=== PATIENT | female | born 1975 | race Caucasian/White ===

== ENCOUNTER 2024-11-17 12:57 | Emergency (ER) | payer MEDICAID, SELFPAY ==
[2024-11-17 12:59] VITALS: BMI 25.8
[2024-11-17 13:06] VITALS: BP 134/90; PULSE 110; RESP 18; TEMP 36.4; O2SAT 100
--- NOTE | 2024-11-17 13:15 | EKG_ITS ---
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
--- NOTE | 2024-11-17 13:15 | XR_ITS ---
Examination: AP lateral chest 2 views TECHNIQUE: Sitting AP lateral chest 2 views Date and time: November 17, 2024 1330 hours INDICATIONS: Loss of consciousness episode today. FINDINGS: Normal heart size No aspiration pneumonia. Moderate osteopenia IMPRESSION: No aspiration pneumonia
--- NOTE | 2024-11-17 13:15 | PD.EDRME ---
Rapid Medical Screening Exam E Arrival date/time: 11/17/24 12:57 49-year-old female with no known medical history presents to the emergency room with a chief complaint of dizziness, lightheadedness, abdominal pain, nausea vomiting x 1 day. Patient states she is on Ozempic and was drinking heavily yesterday afternoon. I have greeted and performed a focused initial assessment of this patient. A comprehensive ED assessment and evaluation of the patient, analysis of all test results, and completion of the medical decision making process will be conducted by additional ED providers. Chief Complaint: Anxiety Time Seen by Provider: 11/17/24 13:09 Vital signs: Vital Signs Temperature 97.5 F 11/17/24 13:06 Pulse Rate 110 H 11/17/24 13:06 Respiratory Rate 18 11/17/24 13:06 Blood Pressure 134/90 H 11/17/24 13:06 Pulse Oximetry (%) 100 11/17/24 13:06 Oxygen Delivery Method Room Air 11/17/24 13:06 Vital signs reviewed by provider: Yes
[2024-11-17 13:52] LABS: Basophils % (Auto) 0 % (0-2.5); Eosinophils # (Auto) 0.3 Thou/mm3 (0.0-0.5); Eosinophils % (Auto) 3 % (0-10); Hematocrit 41.6 % (36.0-46.0); Hemoglobin 14.7 g/dL (12.0-16.0); Immature Granulocytes % (Auto) 0 % (0-0); Immature Granulocytes Auto 0.04 Thou/mm3 (0.00-0.00); Lymphocytes # (Auto) 2.4 Thou/mm3 (1.0-4.8); Lymphocytes % (Auto) 24 % (10-50); Mean Corpuscular HGB Conc 35.3 g/dl (31.0-37.0); Mean Corpuscular Hemoglobin 30.3 pg (25.0-35.0); Mean Corpuscular Volume 86 fL (80-100); Monocytes # (Auto) 0.9 Thou/mm3 (0.0-0.8); Monocytes % (Auto) 8 % (0-12); Neutrophils # (Auto) 6.5 Thou/mm3 (1.8-7.7); Neutrophils % (Auto) 64 % (37-80); Nucleated Red Blood Cell % 0 /100 WBC (0); Platelet Count 288 Thou/mm3 (140-440); RDW Standard Deviation 41.4 fL (36.4-46.3); Red Blood Count 4.85 Miln/mm3 (4.00-5.20); White Blood Count 10.1 Thou/mm3 (3.6-11.0)
[2024-11-17 14:04] LABS: Collection Type, Urine Clean Catch
[2024-11-17 14:11] LABS: B-Type Natriuretic Peptide < 20 pg/mL (0-100)
[2024-11-17 14:32] LABS: Alanine Aminotransferase 45 U/L (10-49); Albumin, Serum 4.6 gm/dL (3.5-5.0); Albumin/Globulin Ratio 1.6 (1.2-2.2); Alkaline Phosphatase 137 U/L (46-116); Anion Gap 13 (7-16); BUN/Creatinine Ratio 14 Ratio (12-20); Bilirubin,Total 0.6 mg/dL (0.3-1.2); Blood Urea Nitrogen 13 mg/dL (9-23); Carbon Dioxide 25.2 mMol/L (20.0-31.0); Chloride 95 mMol/L (98-107); Creatinine (Component) 0.9 mg/dL (0.6-1.3); Estimated Creatinine Clearance 77.1 mL/min (>60); Globulin 2.8 gm/dL (2.3-3.5); Glucose 143 mg/dL (74-106); Magnesium 1.4 mg/dL (1.6-2.6); Osmolality,Calculated 268 (275-295); Sodium 133 mMol/L (136-145); Total Protein 7.4 gm/dL (5.7-8.2); Troponin I < 0.002 ng/mL (0.0-0.045); eGFR > 60 See Note
[2024-11-17 14:34] LABS: Potassium 2.6 mMol/L (3.4-5.1)
[2024-11-17 14:45] LABS: Amphetamine/Methamp Scrn,U Negative (Negative); Barbiturate Screen,Urine Negative (Negative); Benzodiazepines Screen,Urine Negative (Negative); Benzoylecgonine Screen, Ur Negative (Negative); Fentanyl Screen,Urine Negative (Negative); Opiate Screen,Urine Negative (Negative); THC Screen,Urine Negative (Negative)
[2024-11-17 14:47] LABS: Bilirubin,Urine Negative (Negative); Blood,Urine Negative (Negative); Clarity,Urine Clear (Clear/Hazy); Color,Urine Lt-Yellow (Lt Yel-Yel); Glucose, Urine Negative (Negative); Ketones,Urine Negative (Negative); Leukocyte Esterase,Urine Negative (Negative); Nitrite,Urine Negative (Negative); Protein,Urine Negative (Neg - Trace); RBC,Urine 5 /hpf (0-3); Specific Gravity,Urine 1.017 (1.001-1.035); Squamous Epithelial Cell,Urine 4 /hpf (0-5); Urobilinogen,Urine Negative mg/dL (0.0-1.0); WBC,Urine 4 /hpf (0-5)
[2024-11-17 15:51] VITALS: BP 175/101; PULSE 97; RESP 15; TEMP 36.3; O2SAT 100
--- NOTE | 2024-11-17 18:03 | PD.EDADULT ---
ED General RME/HPI General Chief complaint: Anxiety Stated complaint: ANXIOUS/BODY TINGLING AFTER DRINKING ETOH YEST Time Seen by Provider: 11/17/24 13:09 Arrival date/time: 11/17/24 12:57 Limitations: no limitations RME / HPI RME / HPI narrative: 11/17/24 12:57 49-year-old female with no known medical history presents to the emergency room with a chief complaint of dizziness, lightheadedness, abdominal pain, nausea vomiting x 1 day. Patient states she is on Ozempic and was drinking heavily yesterday afternoon. I have greeted and performed a focused initial assessment of this patient. A comprehensive ED assessment and evaluation of the patient, analysis of all test results, and completion of the medical decision making process will be conducted by additional ED providers. DR. ARBOLEDA MAIN ED EVALUATION: 49 year old female with history of hypertension and hyperlipidemia presents to the ED for evaluation of new-onset tingling, paresthesia in the arms and face, and associated weakness that began today. She reports a recent visit with her PCP, during which Losartan and potassium were discontinued. Currently still on hydrochlorothiazide. Additionally, she was started on weight loss medications prescribed by her PCP. The patient expresses concern that her symptoms may be related to the newly started weight loss medication. Related Data Allergies Allergy/AdvReac Type Severity Reaction Status Date / Time No Known Allergies Allergy Verified 11/18/24 17:38 Review of Systems Review of Systems Systems Reviewed: All systems reviewed, normal except as documented Past Medical History Past Medical History CARDIAC: Positive Hypercholesterolemia and Hypertension; Negative Congestive Heart Failure RESPIRATORY: Negative Chronic Obstructive Pulmonary Disease (COPD) GENITOURINARY: Negative Renal Disease ENDOCRINE: Negative Diabetes Mellitus Type 1 or Diabetes Mellitus Type 2 Social History SMOKING STATUS: Former smoker ED Exam General Limitations: Present no limitations General appearance: Present alert and in no apparent distress Head Head exam: Present atraumatic, normocephalic and normal inspection Eye Eye exam: Present normal appearance, PERRL and EOMI ENT ENT exam: Present normal exam, normal oropharynx and mucous membranes moist Neck Neck exam: Present normal inspection, full ROM and trachea midline Chest Chest inspection: Present normal inspection and symmetric chest wall rise Respiratory Respiratory exam: Present normal lung sounds bilaterally Cardiovascular Cardiovascular exam: Present regular rate, normal rhythm and normal heart sounds Abdominal Exam Abdominal exam: Present soft and normal bowel sounds Extremities Exam Extremities exam: Present normal inspection and full ROM Back Exam Back exam: Present normal inspection and full ROM Neurological Exam Neurological exam: Present alert, oriented X3 and CN II-XII intact Psychiatric Psychiatric exam: Present normal affect and normal mood Skin Skin exam: Present warm, dry, intact and normal color Course Quality Measures none Orders Category Date Time Status EKG (ED ONLY) *Do not use* NOW Care 11/17/24 13:15 Completed Insert IV NOW Care 11/17/24 15:52 Completed Diet Regular Diet 11/17/24 Dinner Active EKG (ED Only) Stat Exams 11/17/24 13:15 Draft XR chest 2V Stat Exams 11/17/24 13:15 Completed Alcohol, Blood Medical Stat Lab 11/17/24 13:40 Completed B-Type Natriuretic Peptide Stat Lab 11/17/24 13:40 Completed CBC Stat Lab 11/17/24 13:40 Completed Comprehensive Metabolic Panel Stat Lab 11/17/24 13:40 Completed Drug Screen,Urine Stat Lab 11/17/24 13:56 Completed Magnesium Stat Lab 11/17/24 13:40 Completed Troponin I Stat Lab 11/17/24 13:40 Completed Urinalysis Stat Lab 11/17/24 13:56 Completed LORazepam [Ativan Inj] Med 11/17/24 17:46 Discontinued 1 mg IVP X1 ONE Magnesium Sulfate 2 GM Ivpb [Magnesium Sulfate Ivpb] Med 11/17/24 18:28 Discontinued 2 gm in 50 ml IV X1 Ondansetron Odt [Zofran Odt] Med 11/17/24 13:15 Discontinued 4 mg PO X1 ONE POTASSIUM CHL 10 mEq IVPB [Kcl Ivpb] Med 11/17/24 17:45 Discontinued 10 meq in 100 ml IV Q1H Potassium Chloride [K-Dur] Med 11/17/24 17:43 Discontinued 40 meq PO X1 ONE Potassium Chloride [K-Dur] Med 11/17/24 19:00 Discontinued 40 meq PO X1 ONE Sodium Chloride 0.9% 1000 ml [Ns] 1,000 ml Med 11/17/24 18:02 Discontinued IV 100 mls/hr Vital Signs Vital signs: Vital Signs Temperature 97.5 F 11/17/24 13:06 Pulse Rate 110 H 11/17/24 13:06 Respiratory Rate 18 11/17/24 13:06 Blood Pressure 134/90 H 11/17/24 13:06 Pulse Oximetry (%) 100 11/17/24 13:06 Oxygen Delivery Method Room Air 11/17/24 13:06 Pulse ox is 100% on room air which is adequate. Discharge Plan Plan Patient Disposition: HOME (Self Care) Prescriptions/Referrals Referrals: Madi Garcia MD [Primary Care Provider] - In 1 week Problem List Clinical Impression: Hypokalemia, Hypomagnesemia, Paresthesias Patient/Caregiver Discharge Instructions Education Materials: Discharge Instructions for ..., ED Hypokalemia, ED Paraesthesias Additional Instructions: Hold hydrochlorothiazide tomorrow. Follow up with your doctor for further recommendations. Print Language: Occitan Stand Alone Forms: Jennifer Award Info., Patient Portal Info Letter [facility] Narrative Sign out note: 1800: Patient signed out to Dr. De La Torre pending final disposition. [facility] hospital course: IVickie, tigre scribing for and in the presence of Dr. Arboleda. Labs show patient has hypokalemia and ordered two doses of PO potassium and IV Potassium. Clinical Information Provided by patient Medical Records Reviewed [facility] Meds/Rx Considered, not Ordered None Labs/Rad/Tests considered, not Ordered None Chronic Illness/Social Conditions which may negatively complicate care or outcome(s)-explain: None or not applicable EKG Interpretation EKG #1: Date/time of EK11/17/24 13:17 EKG interpretation: Sinus tachycardia, rate 126, incomplete right bundle branch block, no STEMI. Lab Interpretation Labs: interpreted by me and see narrative above Lab(s) interpretation(s): Hypokalemia Imaging Radiology reports / interpretation(s): Ordering Physician: Xander San Date of Service: 11/17/24 Procedure(s): XR chest 2V Accession Number(s): [id number] cc: Xander San; Magdy Ceja MD~ Examination: AP lateral chest 2 views TECHNIQUE: Sitting AP lateral chest 2 views Date and time: November 17, 2024 1330 hours INDICATIONS: Loss of consciousness episode today. FINDINGS: Normal heart size No aspiration pneumonia. Moderate osteopenia IMPRESSION: No aspiration pneumonia Dictated By: Magdy Ceja MD Signed By: <Electronically signed by Magdy Ceja MD in OV> 11/17/24 1337 Medication Administration(s) Medication Administration History Discontinued Medications Potassium Chloride (Kcl Ivpb) 10 meq in 100 mls @ 100 mls/hr IV Q1H DHARA Stop: 11/17/24 21:44 Last Admin: 11/17/24 22:41 Dose: Not Given Documented By: CELE Non-Admin Reason: Cancelled by Provider Infusion: 11/17/24 22:20 Dose: Infused Documented By: Admin: 11/17/24 21:00 Dose: 75 mls/hr Documented By: Infusion: 11/17/24 20:53 Dose: Infused Documented By: Admin: 11/17/24 19:33 Dose: 75 mls/hr Documented By: Infusion: 11/17/24 19:31 Dose: Infused Documented By: Infusion: 11/17/24 18:33 Dose: 75 mls/hr Documented By: Admin: 11/17/24 18:16 Dose: 100 mls/hr Documented By: OSIEL Sodium Chloride (Ns) 1,000 mls @ 100 mls/hr IV .Q10H ONE Stop: 11/18/24 04:01 Last Admin: 11/17/24 18:17 Dose: 100 mls/hr Documented By: OSIEL Magnesium Sulfate (Magnesium Sulfate Ivpb) 2 gm in 50 mls @ 25 mls/hr IV X1 ONE Stop: 11/17/24 20:27 Last Infusion: 11/17/24 21:17 Dose: Infused Documented By: Admin: 11/17/24 19:00 Dose: 25 mls/hr Documented By: OSIEL Lorazepam (Lorazepam 2 Mg/Ml Vial) 1 mg IVP X1 ONE Stop: 11/17/24 17:47 Last Admin: 11/17/24 18:08 Dose: 1 mg Documented By: OSIEL Ondansetron HCl (Ondansetron Odt 4 Mg Tabrap) 4 mg PO X1 ONE; Protocol Stop: 11/17/24 13:16 Last Admin: 11/17/24 13:26 Dose: Not Given Documented By: YUSRA Non-Admin Reason: Patient Refused Potassium Chloride (Potassium Chloride 20 Meq Tabcr) 40 meq PO X1 ONE Stop: 11/17/24 19:01 Last Admin: 11/17/24 18:08 Dose: 40 meq Documented By: OSIEL Potassium Chloride (Potassium Chloride 20 Meq Tabcr) 40 meq PO X1 ONE Stop: 11/17/24 17:44 Last Admin: 11/17/24 19:34 Dose: 40 meq Documented By: CELE See above
[2024-11-17] MEDS: POTASSIUM CHLORIDE 20 mEq TABCR 40 MEQ PO ×2 (18:08→19:34)
[2024-11-17] MEDS: LORazepam 2 MG/ML VIAL 1 MG IVP (18:08)
[2024-11-17 18:13] VITALS: BP 128/87; PULSE 93; RESP 16; TEMP 36.2; O2SAT 100
[2024-11-17] MEDS: POTASSIUM CHL 10 mEq IVPB 10 MEQ/100 ML BAG 100 MEQ IV (18:16)
[2024-11-17] MEDS: SODIUM CHLORIDE 0.9% 1000 ML 1,000 ML 100 ML IV (18:17)
--- NOTE | 2024-11-17 18:27 | EDNOTE_ITS ---
Emergency Room Addendum Addendum Narrative: 1800: Care assumed from Dr. Shah the previous shift emergency physician. Past medical, surgical, social and family history reviewed. Vitals and home medications reviewed. Results and treatment plan discussed. I will assume the care of the patient at this time and will follow the patient, pending re- evaluation. Please refer to the emergency department record for history and examination from initial visit. Magnesium level is 1.4. I ordered Magnesium 2g IV. 2235: Patient states she feels significantly better and is now asymptomatic. Patient is stable to be discharged home.
[2024-11-17] MEDS: Magnesium Sulfate 2 GM Ivpb 2 GM/50 ML BAG IV (19:00)
[2024-11-17 19:19] VITALS: BP 126/96; PULSE 89; RESP 16; TEMP 36.8; O2SAT 99
[2024-11-17 19:32] LABS: Alcohol, Blood Medical < 3.0 mg/dL (0-10.0)
[2024-11-17] MEDS: POTASSIUM CHL 10 mEq IVPB 10 MEQ/100 ML BAG 75 MEQ IV ×2 (19:33→21:00)
[2024-11-17 22:07] VITALS: BP 111/77; PULSE 91; RESP 16; TEMP 36.7; O2SAT 99
== END 2024-11-17 23:04 | disposition home or self-care (01) ==
PROVIDERS: Nurse Practitioner Family; Emergency Provider Emergency Medicine; PCP Internal Medicine
DX: E83.42 Hypomagnesemia (principal); E87.6 Hypokalemia; R20.2 Paresthesia of skin; R11.2 Nausea with vomiting, unspecified; I45.10 Unspecified right bundle-branch block; R55 Syncope and collapse; I10 Essential (primary) hypertension; E78.00 Pure hypercholesterolemia, unspecified; Z87.891 Personal history of nicotine dependence
CPT/HCPCS: 36415; 71046; 80053; 80307; 80320; 81001; 83735; 83880; 84484; 85025; 93005; 96365; 96366; 96367; 96375; 99284; J2060; J3475; J3480; J7030; A9270; G0480

== ENCOUNTER 2024-11-18 17:35 | Emergency (ER) | payer MEDICAID, SELFPAY ==
[2024-11-18 17:36] VITALS: BMI 25.8
[2024-11-18 18:04] VITALS: BP 141/99; PULSE 93; RESP 18; TEMP 36.5; O2SAT 98
--- NOTE | 2024-11-18 18:41 | EDNOTE_ITS ---
<Statement entered by Niurka De La Torre MD - 11/19/24 18:36> As co-signing physician, I was present and available for consult prn. I concur with the plan and care as documented by the midlevel provider. Nausea/Vomit./Diarrhea-RME/HPI General Chief complaint: Nausea/Vomiting/Diarrhea Stated complaint: DIARRHEA/FELLING FUNNY, SEEN YESTERDAY LOW K+ Time Seen by Provider: 11/18/24 18:29 Arrival date/time: 11/18/24 17:35 49F with history of HTN and anxiety presents to ED with continued non-bloody diarrhea. Patient was here yesterday where potassium and magnesium were low. Patient felt better after she left ED. Symptoms returned about 2 hours ago and patient wants to get ahead of it before it gets as bad as yesterday. Limitations: no limitations Related Data Allergies Allergy/AdvReac Type Severity Reaction Status Date / Time No Known Allergies Allergy Verified 11/18/24 17:38 Review of Systems Review of Systems Systems Reviewed: All systems reviewed, normal except as documented Constitutional Constitutional: Reports system reviewed and no additional complaints, except as documented, Denies fever(s) and Denies headache(s) ENT Ears, Nose, Mouth, and Throat: Denies disequilibrium and Denies headache(s) Cardiovascular Cardiovascular: Reports system reviewed and no additional complaints, except as documented, Denies chest pain and Denies dyspnea Respiratory Respiratory: Reports system reviewed and no additional complaints, except as documented, Denies cough and Denies dyspnea Gastrointestinal Gastrointestinal: Reports system reviewed and no additional complaints, except as documented, Reports as per HPI, Denies abdominal pain, Reports diarrhea, Denies nausea and Denies vomiting Neurologic Neurologic: Reports system reviewed and no additional complaints, except as documented, Denies confusion, Denies disequilibrium and Denies headache(s) Psychiatric Psychiatric: Denies confusion Past Medical History Past Medical History CARDIAC: Positive Hypercholesterolemia and Hypertension; Negative Congestive Heart Failure RESPIRATORY: Negative Chronic Obstructive Pulmonary Disease (COPD) GENITOURINARY: Negative Renal Disease ENDOCRINE: Negative Diabetes Mellitus Type 1 or Diabetes Mellitus Type 2 Social History SMOKING STATUS: Never smoker ED Exam General Limitations: Present no limitations General appearance: Present alert and in no apparent distress Head Head exam: Present atraumatic Eye Eye exam: Present normal appearance, PERRL and EOMI ENT ENT exam: Present normal exam, normal oropharynx and mucous membranes moist Neck Neck exam: Present normal inspection, full ROM and trachea midline Chest Chest inspection: Present normal inspection and symmetric chest wall rise Respiratory Respiratory exam: Present normal lung sounds bilaterally Cardiovascular Cardiovascular exam: Present regular rate, normal rhythm and normal heart sounds Abdominal Exam Abdominal exam: Present soft and normal bowel sounds Extremities Exam Extremities exam: Present normal inspection and full ROM Back Exam Back exam: Present normal inspection and full ROM Neurological Exam Neurological exam: Present alert, oriented X3 and CN II-XII intact Psychiatric Psychiatric exam: Present normal affect and normal mood Skin Skin exam: Present warm, dry, intact and normal color Course Quality Measures none Orders Category Date Time Status CBC Stat Lab 11/18/24 18:45 Completed CMP [Comprehensive Metabolic Panel] Stat Lab 11/18/24 18:45 Completed Lipase Stat Lab 11/18/24 18:45 Completed Mag [Magnesium] Stat Lab 11/18/24 18:45 Completed Vital Signs Vital signs: Vital Signs Temperature 97.7 F 11/18/24 18:04 Pulse Rate 93 11/18/24 18:04 Respiratory Rate 18 11/18/24 18:04 Blood Pressure 141/99 H 11/18/24 18:04 Pulse Oximetry (%) 98 11/18/24 18:04 Oxygen Delivery Method Room Air 11/18/24 18:04 O2 at 98% on RA and WNLs Nausea/Vomiting/Diarrhea MDM Narrative MDM Narrative:: 49F with history of HTN and anxiety presents to ED with continued non-bloody diarrhea. Patient was here yesterday where potassium and magnesium were low. Patient felt better after she left ED. Symptoms returned about 2 hours ago and patient wants to get ahead of it before it gets as bad as yesterday. Physical exam reveals well-appearing female. Patient is afebrile, alert, but anxious. Normal WOB. Normal speech. Normal gait. CBC unremarkable. CMP normal. Magnesium and lipase also normal. Operations And Intelligence Assistant given. Patient data External records reviewed:: [facility] previous records Clinical information provided by:: patient Social determinants that could affect healthcare access:: mental health Patient has the following chronic illnesses:: anxiety and HTN How is presenting disease/condition affected by chronic disease/condition?: exacerbated by Evaluation data The following diagnostics were reviewed and interpreted by me:: lab results Lab and/or radiology exams considered but not ordered:: ordered Interpretation Summary: above Medications / Prescriptions Medications / Prescriptions considered but not ordered:: not ordered Medication administrations:: n/a Consultations Consultation(s) initiated? (list below): No Diagnosis Nausea Differential Diagnosis: traveler's diarrhea, food poisoning, gastroenteritis, clostridium difficile infection, drug-induced nausea and vomit ing and dehydration Most likely diagnosis given after review of the tests above:: gastroenteritis Admission Indicated Admission indicated?: not indicated Admission Request Was there a request for admission?: No Disposition Plan Disposition Plan: Discharge Discharge Attestation Discharge Attestation: The patient and all family members were given an opportunity to ask questions and understood the discharge instructions. Discharge instructions specifically effects, indications for sooner follow up or return to the emergency department, and the expected course of current diagnosis. Patient condition: Stable Discharge Plan Plan Patient Disposition: HOME (Self Care) Discharge Disposition comment: Stable Prescriptions/Referrals Referrals: Aquilino Car MD [Primary Care Provider] - In 1 week Problem List Clinical Impression: Gastroenteritis Patient/Caregiver Discharge Instructions Education Materials: ED Diarrhea, Viral (Adult) Additional Instructions: Please follow-up with PCP within 24-48 hours and return immediately if symptoms worsen. Can follow-up with PCP for stool testing. Print Language: Tristanian Stand Alone Forms: Patient Portal Info Letter GONZALEZ/SHERRIE Supervising Physician LOREZNO Supervising Physician: Dr. De La Torre
[2024-11-18 18:56] LABS: Basophils # (Auto) 0.1 Thou/mm3 (0.0-0.2); Basophils % (Auto) 1 % (0-2.5); Eosinophils # (Auto) 0.5 Thou/mm3 (0.0-0.5); Eosinophils % (Auto) 5 % (0-10); Hematocrit 41.5 % (36.0-46.0); Hemoglobin 14.2 g/dL (12.0-16.0); Immature Granulocytes % (Auto) 0 % (0-0); Immature Granulocytes Auto 0.03 Thou/mm3 (0.00-0.00); Lymphocytes % (Auto) 29 % (10-50); Mean Corpuscular HGB Conc 34.2 g/dl (31.0-37.0); Mean Corpuscular Hemoglobin 30.1 pg (25.0-35.0); Mean Corpuscular Volume 88 fL (80-100); Monocytes # (Auto) 0.9 Thou/mm3 (0.0-0.8); Monocytes % (Auto) 8 % (0-12); Neutrophils # (Auto) 6.1 Thou/mm3 (1.8-7.7); Neutrophils % (Auto) 58 % (37-80); Nucleated Red Blood Cell % 0 /100 WBC (0); Platelet Count 283 Thou/mm3 (140-440); RDW Standard Deviation 45.6 fL (36.4-46.3); Red Blood Count 4.72 Miln/mm3 (4.00-5.20); White Blood Count 10.6 Thou/mm3 (3.6-11.0)
[2024-11-18 20:42] LABS: Alanine Aminotransferase 37 U/L (10-49); Albumin, Serum 4.6 gm/dL (3.5-5.0); Albumin/Globulin Ratio 1.8 (1.2-2.2); Alkaline Phosphatase 132 U/L (46-116); Anion Gap 8 (7-16); BUN/Creatinine Ratio 20 Ratio (12-20); Bilirubin,Total 0.3 mg/dL (0.3-1.2); Blood Urea Nitrogen 14 mg/dL (9-23); Calcium 10.1 mg/dL (8.3-10.6); Calcium (Corrected) 10.1 mg/dL (8.5-10.1); Carbon Dioxide 27.8 mMol/L (20.0-31.0); Chloride 103 mMol/L (98-107); Creatinine (Component) 0.7 mg/dL (0.6-1.3); Estimated Creatinine Clearance 99.2 mL/min (>60); Globulin 2.6 gm/dL (2.3-3.5); Glucose 104 mg/dL (74-106); Lipase 28 U/L (12-53); Magnesium 1.9 mg/dL (1.6-2.6); Osmolality,Calculated 278 (275-295); Potassium 3.9 mMol/L (3.4-5.1); Sodium 139 mMol/L (136-145); Total Protein 7.2 gm/dL (5.7-8.2); eGFR > 60 See Note
== END 2024-11-18 20:59 | disposition home or self-care (01) ==
PROVIDERS: Physician Assistant; Emergency Provider Emergency Medicine; PCP Family Medicine
DX: K52.9 Noninfective gastroenteritis and colitis, unspecified (principal)
CPT/HCPCS: 36415; 80053; 83690; 83735; 85025; 99283

== ENCOUNTER 2024-11-20 01:53 | Emergency (ER) | payer MEDICAID, SELFPAY ==
[2024-11-20 01:56] VITALS: BP 140/90; PULSE 104; RESP 18; TEMP 36.9; O2SAT 95
[2024-11-20 02:02] VITALS: PULSE 110; O2SAT 100
--- NOTE | 2024-11-20 02:46 | EKG_ITS ---
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
[2024-11-20] MEDS: DIAZEPAM 5 MG TABLET 10 MG PO (03:09)
--- NOTE | 2024-11-20 03:27 | EDNOTE_ITS ---
<Statement entered by Niurka De La Torre MD - 11/21/24 18:31> As co-signing physician, I was present and available for consult prn. I concur with the plan and care as documented by the midlevel provider. ED Anxiety RME/HPI General Chief Complaint: General Adult/Misc Complain Stated Complaint: MUSCLE TREMORS Time Seen by Provider: 11/20/24 02:45 Arrival date/time: 11/20/24 01:53 49F with history of HTN and HLD presents to ED with sudden episode several hours ago of muscle tremors, CP, SOB, and generalized body numbness/tingling. Patient states she doesn't have a history of panic attacks or anxiety. Patient was recently here for this and felt like this when her potassium was low. Patient states her symptoms are lessened prior to arrival in ED. Limitations: no limitations Related Data Allergies Allergy/AdvReac Type Severity Reaction Status Date / Time No Known Allergies Allergy Verified 11/18/24 17:38 Review of Systems Review of Systems Systems Reviewed: All systems reviewed, normal except as documented Constitutional Constitutional: Reports system reviewed and no additional complaints, except as documented, Denies fever(s) and Denies headache(s) ENT Ears, Nose, Mouth, and Throat: Denies disequilibrium and Denies headache(s) Cardiovascular Cardiovascular: Reports system reviewed and no additional complaints, except as documented, Reports as per HPI, Reports chest pain and Reports dyspnea Respiratory Respiratory: Reports system reviewed and no additional complaints, except as documented, Denies cough and Reports dyspnea Gastrointestinal Gastrointestinal: Reports system reviewed and no additional complaints, except as documented, Denies abdominal pain, Denies nausea and Denies vomiting Musculoskeletal Musculoskeletal: Reports numbness and Reports tingling Neurologic Neurologic: Reports system reviewed and no additional complaints, except as documented, Reports as per HPI, Denies confusion, Denies disequilibrium, Denies headache(s), Reports numbness and Reports tingling Psychiatric Psychiatric: Denies confusion Past Medical History Past Medical History CARDIAC: Positive Hypercholesterolemia and Hypertension; Negative Congestive Heart Failure RESPIRATORY: Negative Chronic Obstructive Pulmonary Disease (COPD) GENITOURINARY: Negative Renal Disease ENDOCRINE: Negative Diabetes Mellitus Type 1 or Diabetes Mellitus Type 2 Social History SMOKING STATUS: Former smoker ED Exam General Limitations: Present no limitations General appearance: Present alert, in no apparent distress and anxious Head Head exam: Present atraumatic Eye Eye exam: Present normal appearance, PERRL and EOMI ENT ENT exam: Present normal exam, normal oropharynx and mucous membranes moist Neck Neck exam: Present normal inspection, full ROM and trachea midline Chest Chest inspection: Present normal inspection and symmetric chest wall rise Respiratory Respiratory exam: Present normal lung sounds bilaterally Cardiovascular Cardiovascular exam: Present regular rate, normal rhythm and normal heart sounds Abdominal Exam Abdominal exam: Present soft and normal bowel sounds Extremities Exam Extremities exam: Present normal inspection and full ROM Back Exam Back exam: Present normal inspection and full ROM Neurological Exam Neurological exam: Present alert, oriented X3 and CN II-XII intact Psychiatric Psychiatric exam: Present normal affect and normal mood Skin Skin exam: Present warm, dry, intact and normal color Course Quality Measures none Orders Category Date Time Status EKG (ED ONLY) *Do not use* NOW Care 11/20/24 02:46 Completed EKG (ED Only) Stat Exams 11/20/24 02:46 Ordered CBC Stat Lab 11/20/24 02:46 Ordered CMP [Comprehensive Metabolic Panel] Stat Lab 11/20/24 02:46 Ordered Mag [Magnesium] Stat Lab 11/20/24 02:46 Ordered Syphilis Stat Lab 11/20/24 Ordered TSH [Thyroid Stimulating Hormone] Stat Lab 11/20/24 02:46 Ordered Diazepam [Valium] Med 11/20/24 02:50 Discontinued 10 mg PO X1 ONE Vital Signs Vital signs: Vital Signs Temperature 98.4 F 11/20/24 01:56 Pulse Rate 104 H 11/20/24 01:56 Respiratory Rate 18 11/20/24 01:56 Blood Pressure 140/90 H 11/20/24 01:56 Pulse Oximetry (%) 95 11/20/24 01:56 Oxygen Delivery Method Room Air 11/20/24 01:56 Anxiety MDM Narrative MDM Narrative: 49F with history of HTN and HLD presents to ED with sudden episode several hours ago of muscle tremors, CP, SOB, and generalized body numbness/tingling. Patient Patient states she doesn't have a history of panic attacks or anxiety. Patient was recently here for this and felt like this when her potassium was low. Patient states her symptoms are lessened prior to arrival in ED. Physical exam reveals normal pupil resposne and EOM. CN II-XII grossly intact. Gait normal. Speech normal. Normal WOB. Patient is afebrile, alert, but very anxious. EKG is sinus tach of 126 with RBBB (present on previous EKG). Normal trop. Normal D-dimer. TSH, syphillis, CMP, and CBC unremarkable. Valium relieved symptoms. Patient data External records reviewed:: [facility] previous records Clinical information provided by:: patient Social determinants that could affect healthcare access:: none Patient has the following chronic illnesses:: HTN and HLD How is presenting disease/condition affected by chronic disease/condition?: uneffected by Evaluation data The following diagnostics were reviewed and interpreted by me:: lab results and EKG tracing(s) Lab and/or radiology exams considered but not ordered:: ordered Interpretation Summary: above Medications / Prescriptions Medications or Prescriptions considered but not ordered:: ordered Medication administrations:: Medication Administration History Discontinued Medications Diazepam (Diazepam 5 Mg Tablet) 10 mg PO X1 ONE Stop: 11/20/24 02:51 Last Admin: 11/20/24 03:09 Dose: 10 mg Documented By: CB Consultations Consultation(s) initiated? (list below): No Diagnosis Differential diagnosis anxiety: hyperventilation, panic disorder (attack) and acute anxiety Most likely diagnosis given after review of the tests above:: panic attack Admission Indicated Admission indicated?: not indicated Admission Request Was there a request for admission?: No Disposition Plan Disposition Plan: Discharge Discharge Attestation Discharge Attestation: The patient and all family members were given an opportunity to ask questions and understood the discharge instructions. Discharge instructions specifically effects, indications for sooner follow up or return to the emergency department, and the expected course of current diagnosis. Patient condition: Stable Discharge Plan Plan Patient Disposition: HOME (Self Care) Discharge Disposition comment: Stable Problem List Clinical Impression: Panic attack as reaction to stress Patient/Caregiver Discharge Instructions Education Materials: Your Body's Response to Anxiety Additional Instructions: Please follow-up with PCP within 24-48 hours and return immediately if symptoms worsen. Will need additional evaluation and/or official diagnosis/management for panic/anxiety disorder. Print Language: Kinyarwanda Stand Alone Forms: Patient Portal Info Letter GONZALEZ/SHERRIE Supervising Physician GONZALEZ/SHERRIE Supervising Physician: Dr. De La Torre
[2024-11-20 03:37] LABS: Basophils # (Auto) 0.1 Thou/mm3 (0.0-0.2); Basophils % (Auto) 1 % (0-2.5); Eosinophils # (Auto) 0.7 Thou/mm3 (0.0-0.5); Eosinophils % (Auto) 6 % (0-10); Hemoglobin 14.6 g/dL (12.0-16.0); Immature Granulocytes % (Auto) 0 % (0-0); Immature Granulocytes Auto 0.05 Thou/mm3 (0.00-0.00); Lymphocytes # (Auto) 2.7 Thou/mm3 (1.0-4.8); Lymphocytes % (Auto) 21 % (10-50); Mean Corpuscular HGB Conc 35.6 g/dl (31.0-37.0); Mean Corpuscular Hemoglobin 29.9 pg (25.0-35.0); Mean Corpuscular Volume 84 fL (80-100); Monocytes % (Auto) 8 % (0-12); Neutrophils # (Auto) 8.2 Thou/mm3 (1.8-7.7); Neutrophils % (Auto) 64 % (37-80); Nucleated Red Blood Cell % 0 /100 WBC (0); Platelet Count 272 Thou/mm3 (140-440); RDW Standard Deviation 42.9 fL (36.4-46.3); Red Blood Count 4.88 Miln/mm3 (4.00-5.20); White Blood Count 12.7 Thou/mm3 (3.6-11.0)
[2024-11-20 03:57] LABS: Alanine Aminotransferase 38 U/L (10-49); Albumin, Serum 4.6 gm/dL (3.5-5.0); Albumin/Globulin Ratio 1.7 (1.2-2.2); Alkaline Phosphatase 146 U/L (46-116); Anion Gap 9 (7-16); BUN/Creatinine Ratio 18 Ratio (12-20); Bilirubin,Total 0.4 mg/dL (0.3-1.2); Blood Urea Nitrogen 16 mg/dL (9-23); Calcium 10.1 mg/dL (8.3-10.6); Calcium (Corrected) 10.1 mg/dL (8.5-10.1); Carbon Dioxide 30.3 mMol/L (20.0-31.0); Chloride 106 mMol/L (98-107); Creatinine (Component) 0.9 mg/dL (0.6-1.3); Globulin 2.7 gm/dL (2.3-3.5); Glucose 95 mg/dL (74-106); Magnesium 1.8 mg/dL (1.6-2.6); Osmolality,Calculated 289 (275-295); Potassium 4.2 mMol/L (3.4-5.1); Sodium 145 mMol/L (136-145); Thyroid Stimulating Hormone 1.59 uIU/mL (0.55-4.78); Total Protein 7.3 gm/dL (5.7-8.2); Troponin I < 0.002 ng/mL (0.0-0.045); eGFR > 60 See Note
[2024-11-20 04:00] LABS: D-Dimer < 250 ng/mL (<600)
[2024-11-20 05:32] LABS: Syphilis Nonreactive (Nonreactive)
[2024-11-20 05:41] VITALS: BP 132/76; PULSE 80; RESP 16; TEMP 36.8; O2SAT 98
== END 2024-11-20 05:43 | disposition home or self-care (01) ==
LOC: SERX 05:51
PROVIDERS: Physician Assistant; Emergency Provider Emergency Medicine; PCP Family Medicine
DX: F43.0 Acute stress reaction (principal); E78.5 Hyperlipidemia, unspecified; I10 Essential (primary) hypertension
CPT/HCPCS: 36415; 80053; 83735; 84443; 84484; 85025; 85379; 86780; 93005; 99283; A9270

== ENCOUNTER 2025-02-13 12:15 | Emergency (ER) | payer MEDICAID, SELFPAY ==
--- NOTE | 2025-02-13 12:22 | EKG_ITS ---
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
[2025-02-13 12:29] VITALS: BP 158/88; PULSE 98; RESP 18; TEMP 36.9; O2SAT 99; BMI 26.5
--- NOTE | 2025-02-13 12:40 | XR_ITS ---
Examination: PA lateral chest 2 views TECHNIQUE: Upright PA lateral chest 2 views Date and time: February 13, 2025, 12:45 PM, comparison November 17, 2024 INDICATIONS: Chest pain dizziness hypertension today. FINDINGS: Normal heart size. The lungs are clear. The osseous structures are intact IMPRESSION: No active disease
--- NOTE | 2025-02-13 12:41 | PD.EDRME ---
Rapid Medical Screening Exam RME Arrival date/time: 02/13/25 12:15 50-year-old female with no known medical history presents to the emergency room with a chief complaint of palpitations, shortness of breath, intermittent chest pain, and dizziness x 1 day I have greeted and performed a focused initial assessment of this patient. A comprehensive ED assessment and evaluation of the patient, analysis of all test results, and completion of the medical decision making process will be conducted by additional ED providers. Chief Complaint: Arrhythmia/Palpitations Time Seen by Provider: 02/13/25 12:31 Vital signs: Vital Signs Temperature 98.5 F 02/13/25 12:29 Pulse Rate 98 02/13/25 12:29 Respiratory Rate 18 02/13/25 12:29 Blood Pressure 158/88 H 02/13/25 12:29 Pulse Oximetry (%) 99 02/13/25 12:29 Oxygen Delivery Method Room Air 02/13/25 12:29 Vital signs reviewed by provider: Yes
[2025-02-13 13:25] LABS: Collection Type, Urine Clean Catch; RBC,Urine 0 /hpf (0-3)
[2025-02-13 13:29] LABS: Basophils # (Auto) 0.1 Thou/mm3 (0.0-0.2); Basophils % (Auto) 1 % (0-2.5); Eosinophils # (Auto) 0.5 Thou/mm3 (0.0-0.5); Eosinophils % (Auto) 6 % (0-10); Hematocrit 41.8 % (36.0-46.0); Hemoglobin 14.4 g/dL (12.0-16.0); Immature Granulocytes Auto 0.02 Thou/mm3 (0.00-0.00); Lymphocytes # (Auto) 2.0 Thou/mm3 (1.0-4.8); Lymphocytes % (Auto) 22 % (10-50); Mean Corpuscular HGB Conc 34.4 g/dl (31.0-37.0); Mean Corpuscular Hemoglobin 30.4 pg (25.0-35.0); Mean Corpuscular Volume 88 fL (80-100); Monocytes # (Auto) 0.7 Thou/mm3 (0.0-0.8); Monocytes % (Auto) 8 % (0-12); Neutrophils # (Auto) 5.7 Thou/mm3 (1.8-7.7); Neutrophils % (Auto) 63 % (37-80); Nucleated Red Blood Cell # 0.00 Thou/mm3 (0.00-0.00); Nucleated Red Blood Cell % 0 /100 WBC (0); Platelet Count 271 Thou/mm3 (140-440); RDW Standard Deviation 42.5 fL (36.4-46.3); Red Blood Count 4.74 Miln/mm3 (4.00-5.20); White Blood Count 9.0 Thou/mm3 (3.6-11.0)
[2025-02-13 13:30] LABS: Bilirubin,Urine Negative (Negative); Blood,Urine Negative (Negative); Clarity,Urine Clear (Clear/Hazy); Color,Urine Colorless (Lt Yel-Yel); Culture Indicated,Urine Not Indicated; Glucose, Urine Negative (Negative); Ketones,Urine Negative (Negative); Leukocyte Esterase,Urine Negative (Negative); Nitrite,Urine Negative (Negative); PH,Urine 6.5 (5.0-7.0); Protein,Urine Negative (Neg - Trace); Specific Gravity,Urine 1.004 (1.001-1.035); Squamous Epithelial Cell,Urine < 1 /hpf (0-5); Urobilinogen,Urine Negative mg/dL (0.0-1.0); WBC,Urine < 1 /hpf (0-5)
[2025-02-13 13:36] LABS: Amphetamine/Methamp Scrn,U Negative (Negative); Barbiturate Screen,Urine Negative (Negative); Benzodiazepines Screen,Urine Negative (Negative); Benzoylecgonine Screen, Ur Negative (Negative); Fentanyl Screen,Urine Negative (Negative); Opiate Screen,Urine Negative (Negative); THC Screen,Urine Negative (Negative)
[2025-02-13 13:45] LABS: INR 1.0 (0.9-1.3); Partial Thromboplastin Time 27.9 Seconds (22.0-36.0); Prothrombin Time 10.5 Seconds (9.0-12.2)
[2025-02-13 13:48] LABS: B-Type Natriuretic Peptide < 20 pg/mL (0-100)
[2025-02-13 13:49] LABS: Alanine Aminotransferase 33 U/L (10-49); Albumin, Serum 4.8 gm/dL (3.5-5.0); Albumin/Globulin Ratio 1.7 (1.2-2.2); Alkaline Phosphatase 135 U/L (46-116); Anion Gap 9 (7-16); Aspartate Amino Transferase 30 U/L (0-34); BUN/Creatinine Ratio 11 Ratio (12-20); Bilirubin,Total 0.5 mg/dL (0.3-1.2); Blood Urea Nitrogen 9 mg/dL (9-23); Calcium 10.7 mg/dL (8.3-10.6); Calcium (Corrected) 10.7 mg/dL (8.5-10.1); Carbon Dioxide 27.4 mMol/L (20.0-31.0); Chloride 106 mMol/L (98-107); Creatinine (Component) 0.8 mg/dL (0.6-1.3); Estimated Creatinine Clearance 77.9 mL/min (>60); Globulin 2.8 gm/dL (2.3-3.5); Glucose 91 mg/dL (74-106); Magnesium 1.7 mg/dL (1.6-2.6); Osmolality,Calculated 281 (275-295); Potassium 3.7 mMol/L (3.4-5.1); Sodium 142 mMol/L (136-145); Total Protein 7.6 gm/dL (5.7-8.2); Troponin I < 0.002 ng/mL (0.0-0.045); eGFR > 60 See Note
--- NOTE | 2025-02-13 16:34 | EDNOTE_ITS ---
ED General RME/HPI General Chief complaint: Arrhythmia/Palpitations Stated complaint: C/P SHORT OF BREATH, HEART PALPITATIONS SINCE AM Time Seen by Provider: 02/13/25 12:31 Arrival date/time: 02/13/25 12:15 Limitations: no limitations RME / HPI RME / HPI narrative: 02/13/25 12:15 50-year-old female with no known medical history presents to the emergency room with a chief complaint of palpitations, shortness of breath, intermittent chest pain, and dizziness x 1 day I have greeted and performed a focused initial assessment of this patient. A comprehensive ED assessment and evaluation of the patient, analysis of all test results, and completion of the medical decision making process will be conducted by additional ED providers. DR. ARBOLEDA MAIN ED EVALUATION: 50 year old female with history of hypertension presents to the ED for evaluation of anxiety, palpitations, and chest pain beginning this morning after waking. Described chest pain as sharp in sensation, rating as moderate. Accompanied by dizziness sensation lasting only a few minutes before resolving on its own. 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 Also reports poor sleep last night adding her children woke her up several times last night. No other associated symptoms reported. Related Data Allergies Allergy/AdvReac Type Severity Reaction Status Date / Time No Known Allergies Allergy Verified 02/13/25 12:19 Review of Systems Review of Systems Systems Reviewed: All systems reviewed, normal except as documented Past Medical History Past Medical History CARDIAC: Positive Hypercholesterolemia and Hypertension; Negative Congestive Heart Failure RESPIRATORY: Negative Chronic Obstructive Pulmonary Disease (COPD) GENITOURINARY: Negative Renal Disease ENDOCRINE: Negative Diabetes Mellitus Type 1 or Diabetes Mellitus Type 2 Social History SMOKING STATUS: Current every day smoker ED Exam General Limitations: Present no limitations General appearance: Present alert and anxious (with slightly pressured speech ) Head Head exam: Present atraumatic Eye Eye exam: Present normal appearance, PERRL and EOMI ENT ENT exam: Present normal exam, normal oropharynx and mucous membranes moist Neck Neck exam: Present normal inspection, full ROM and trachea midline Chest Chest inspection: Present normal inspection and symmetric chest wall rise Respiratory Respiratory exam: Present normal lung sounds bilaterally Cardiovascular Cardiovascular exam: Present regular rate, normal rhythm and normal heart sounds Abdominal Exam Abdominal exam: Present soft and normal bowel sounds Extremities Exam Extremities exam: Present normal inspection and full ROM Back Exam Back exam: Present normal inspection and full ROM Neurological Exam Neurological exam: Present alert, oriented X3 and CN II-XII intact Psychiatric Psychiatric exam: Present anxious Skin Skin exam: Present warm, dry, intact and normal color Course Quality Measures none Orders Category Date Time Status EKG (ED ONLY) *Do not use* NOW Care 02/13/25 12:22 Completed EKG (ED Only) Stat Exams 02/13/25 12:22 Ordered EKG (ED Only) Urgent Exams 02/13/25 12:22 Draft XR chest 2V Stat Exams 02/13/25 12:40 Completed B-Type Natriuretic Peptide Stat Lab 02/13/25 13:12 Completed CBC Stat Lab 02/13/25 13:12 Completed Comprehensive Metabolic Panel Stat Lab 02/13/25 13:12 Completed Drug Screen,Urine Stat Lab 02/13/25 13:11 Completed Magnesium Stat Lab 02/13/25 13:12 Completed Partial Thromboplastin Time Stat Lab 02/13/25 13:12 Completed Prothrombin Time with INR Stat Lab 02/13/25 13:12 Completed Troponin I Stat Lab 02/13/25 13:12 Completed Urinalysis, C/S if Indicated Stat Lab 02/13/25 13:11 Completed Vital Signs Vital signs: Vital Signs Temperature 98.5 F 02/13/25 12:29 Pulse Rate 98 02/13/25 12:29 Respiratory Rate 18 02/13/25 12:29 Blood Pressure 158/88 H 02/13/25 12:29 Pulse Oximetry (%) 99 02/13/25 12:29 Oxygen Delivery Method Room Air 02/13/25 12:29 Pulse ox is 99% on room air which is adequate. Discharge Plan Plan Patient Disposition: HOME (Self Care) Prescriptions/Referrals Referrals: Madi Garcia MD [Primary Care Provider, Internal Medicine] - In 1 week Problem List Clinical Impression: Palpitations, Anxiety Patient/Caregiver Discharge Instructions Education Materials: Anxiety Disorders Tx Therapy, Understanding Anxiety Disorders, Treating Anxiety Disorders ..., ED Palpitations Additional Instructions: Follow-up with your medical doctor. Consider cardiology consultation and cardiac stress test Print Language: Kiswahili Stand Alone Forms: Jennifer Award Info., Patient Portal Info Letter MDM Narrative [facility] hospital course: Vickie Conrad am scribing for and in the presence of Dr. Arboleda. Clinical Information Provided by patient Medical Records Reviewed [facility] Meds/Rx Considered, not Ordered None Labs/Rad/Tests considered, not Ordered None Chronic Illness/Social Conditions which may negatively complicate care or outcome(s)-explain: Mental health EKG Interpretation EKG #1: Date/time of EK02/13/25 12:31 pm EKG interpretation: NSR, rate 84, incomplete RBBB, no STEMI. Lab Interpretation Labs: interpreted by mn Lab(s) interpretation(s): CBC unremarkable Calcium today 10.7 UA negative for infection Imaging Radiology reports / interpretation(s): Ordering Physician: Xander San Date of Service: 02/13/25 Procedure(s): XR chest 2V Accession Number(s): [id number] cc: Xander San; Magdy Ceja MD~ Examination: PA lateral chest 2 views TECHNIQUE: Upright PA lateral chest 2 views Date and time: February 13, 2025, 12:45 PM, comparison November 17, 2024 INDICATIONS: Chest pain dizziness hypertension today. FINDINGS: Normal heart size. The lungs are clear. The osseous structures are intact IMPRESSION: No active disease Dictated By: Magdy Ceja MD Signed By: <Electronically signed by Magdy Ceja MD in OV> 02/13/25 1255 Medication Administration(s) none Diagnosis Most likely dx, and/or detailed dx discussion: Palpitations Anxiety Dispositon Disposition: Discharge Home
== END 2025-02-13 16:50 | disposition home or self-care (01) ==
PROVIDERS: Nurse Practitioner Family; Emergency Provider Family Medicine; PCP Internal Medicine
DX: F41.9 Anxiety disorder, unspecified (principal); R07.9 Chest pain, unspecified; I10 Essential (primary) hypertension; E78.00 Pure hypercholesterolemia, unspecified; F17.210 Nicotine dependence, cigarettes, uncomplicated
CPT/HCPCS: 36415; 71046; 80053; 80307; 81001; 83735; 83880; 84484; 85025; 85610; 85730; 93005; 99283